=== PATIENT | male | born 1955 | race Caucasian/White ===

== ENCOUNTER 2017-10-14 11:55 | Inpatient (IN) | payer OTHER ==
[~2017-10-14] VITALS: Ht 188 cm; Wt 122.0 kg
[~2017-10-14 11:55] MED LIST: ANTIBIOTIC PO; BYSTOLIC10 MG PO; ULTRAM 50MG50 MG PO
[2017-10-14 12:00] VITALS: BP 129/77
[2017-10-14 12:52] VITALS: BP 129/77
[2017-10-14] MEDS ORDERED: CEFTRIAXONE SOD 1 GM in WATER STERILE 10ML VIAL 10 ML IV SCH (13:15)
[2017-10-14] MEDS: METRONIDAZOLE 500MG/NS 100ML 100 ML IV SCH ×2 (14:00→22:00)
[2017-10-14] MEDS: HYDROMORPHONE 1MG/1ML INJ IV PRN ×2 (14:17→20:47)
[2017-10-14] MEDS: SODIUM CHLORIDE 0.9% 1000ML 1,000 ML IV SCH ×2 (14:18→23:00)
[2017-10-14] MEDS: PANTOPRAZOLE 40 MG 10ML VIAL IV SCH (17:55)
[2017-10-14] MEDS ORDERED: LIDOCAINE HCL 2% LOCAL INJ 5 ML SDV VIAL INJ ONE (18:36)
[2017-10-14] MEDS ORDERED: PROPOFOL IV EMULSION 10 MG/ML 20 ML VIAL ONE (18:36)
[2017-10-14] MEDS ORDERED: ROCURONIUM BROMIDE 10 MG/ML 5ML VIAL ONE (18:36)
[2017-10-14] MEDS ORDERED: HYDRALAZINE HCL 20 MG/ML VIAL ONE (18:36)
[2017-10-14] MEDS ORDERED: ONDANSETRON HCL INJ 2 MG/ML VIAL ONE (18:36)
[2017-10-14] MEDS ORDERED: SEVOFLURANE INHAL SOLN 250 ML PEN BTL ONE (18:36)
[2017-10-14] MEDS ORDERED: CEFTRIAXONE SOD 1 GM VIAL ONE (18:36)
[2017-10-14] MEDS ORDERED: GLYCOPYRROLATE INJ 1MG/ 5 ML SYR ONE (18:36)
[2017-10-14] MEDS ORDERED: DEXAMETHASONE SOD PHOS INJ 4 MG/ML VIAL ONE (18:36)
[2017-10-14] MEDS ORDERED: NEOSTIGMINE 5 MG/5ML SYR ONE (18:36)
[2017-10-14 20:00] VITALS: BP 124/60
[2017-10-14] MEDS ORDERED: ACETAMINOPHEN 325 MG TAB PO PRN (20:00)
[2017-10-15] VITALS: BP 102/58
[2017-10-15 04:00] VITALS: BP 122/55
[2017-10-15] MEDS: METRONIDAZOLE 500MG/NS 100ML 100 ML IV SCH ×3 (05:38→22:39)
--- NOTE | 2017-10-15 07:26 | Diagnostic Imaging Report ---
Exam: Abdominal series upright and supine Clinical History: Abdominal pain Comparison: None. DISCUSSION: Nonobstructive bowel gas pattern. Scattered areas of small and large bowel gas. Moderate retained stool throughout the colon. No free air. Lungs clear. IMPRESSION: 1. Nonobstructive bowel gas pattern. Signed by: Dr. Gerard Lara M.D. on 10/15/2017 7:23 AM
[2017-10-15 07:34] LABS: BASOPHILS # (AUTO) 0.1 (0.0-0.1); BASOPHILS % 0.3 % (0.0-1.0); EOSINOPHILS % 0.1 % (0.0-6.0); HEMATOCRIT 38.2 % (38.2-49.6); HEMOGLOBIN 12.1 g/dL (14.0-18.0); LYMPHOCYTES # (AUTO) 1.6 (1.0-3.2); LYMPHOCYTES % 9.3 % (18.0-39.1); MEAN CORPUSCULAR HEMOGLOBIN 25.4 pg (28-32); MEAN CORPUSCULAR HGB CONC 31.7 g/dL (31-35); MEAN CORPUSCULAR VOLUME 80.3 fL (81-99); MONOCYTES # (AUTO) 2.2 (0.2-0.8); MONOCYTES % 12.4 % (4.4-11.3); NEUTROPHILS # (AUTO) 13.5 (2.1-6.9); NEUTROPHILS % 77.3 % (38.7-80.0); PLATELET COUNT 251 x10e3/uL (140-360); RED BLOOD COUNT 4.76 x10e6/uL (4.3-5.7); RED CELL DISTRIBUTION WIDTH 15.3 % (11.7-14.4)
[2017-10-15 07:58] LABS: ALANINE AMINOTRANSFERASE 161 IU/L (0-55); ALBUMIN 2.8 g/dL (3.5-5.0); ALBUMIN/GLOBULIN RATIO 0.9 (0.8-2.0); ALKALINE PHOSPHATASE 143 IU/L (40-150); ANION GAP 8.8 mmol/L (8-16); BLOOD UREA NITROGEN 14 mg/dL (7-26); BUN/CREATININE RATIO 16 (6-25); CALCIUM 8.4 mg/dL (8.4-10.2); CARBON DIOXIDE 28 mmol/L (22-29); CHLORIDE 103 mmol/L (98-107); CREATININE, SERUM 0.88 mg/dL (0.72-1.25); EST GLOMERULAR FILTRATION RATE > 60 ML/MIN (60-); GLUCOSE 95 mg/dL (74-118); POTASSIUM 3.8 mmol/L (3.5-5.1); SODIUM 136 mmol/L (136-145)
[2017-10-15] MEDS ORDERED: ATENOLOL50 MG PO (09:05)
[2017-10-15] MEDS ORDERED: OMEPRAZOLE40 MG PO (09:07)
[2017-10-15 09:08] VITALS: BP 98/58
[2017-10-15] MEDS ORDERED: CEFTRIAXONE SOD 2 GM VIAL ONE (09:49)
[2017-10-15] MEDS: SODIUM CHLORIDE 0.9% 1000ML 1,000 ML IV SCH ×2 (10:12→19:00)
[2017-10-15] MEDS: CEFTRIAXONE SOD 2 GM in WATER STERILE 10ML VIAL 20 ML IV SCH (11:11)
[2017-10-15 12:14] VITALS: BP 108/58
[2017-10-15] MEDS ORDERED: GADOBUTROL 10 MMOL/10 ML VIAL IV ONE (12:48)
[2017-10-15] MEDS: PANTOPRAZOLE 40 MG 10ML VIAL IV SCH (17:42)
[2017-10-15 18:22] VITALS: BP 118/58
--- NOTE | 2017-10-15 19:38 | Diagnostic Imaging Report ---
EXAM: MRI [facility]CP [facility] DATE: 10/15/2017 9:08 AM Time stamp on exam: 1305 hours INDICATION: Jaundice and abdominal pain, cholecystitis COMPARISON: None TECHNIQUE: MRCP and routine abdominal protocol performed using1.5 Keli with and without the administration of 10 cc gadavist. FINDINGS: Small layering gallstones in the body and neck. No gallbladder wall thickening. Mild pericholecystic inflammation. The common bile duct is normal in caliber measuring 6mm. There are no filling defects or strictures. No intrahepatic biliary dilation. Within the limitations of the exam, the liver, spleen, pancreas and adrenal glands are unremarkable. Simple cortical cyst measuring 1 cm posterior aspect of the left kidney superior pole. No upper abdominal lymphadenopathy. The soft tissues and bones are unremarkable. IMPRESSION: There are small layering gallstones in the gallbladder body and neck. No wall thickening, however there is a small amount of inflammation at the inferior aspect of the gallbladder. If clinical findings are equivocal for early cholecystitis, consider nuclear medicine biliary scan. The common bile duct is within normal size limits. No choledocholithiasis. Signed by: Dr. Magui Stone M.D. on 10/15/2017 7:35 PM
[2017-10-15 20:00] VITALS: BP 117/58
[2017-10-15] MEDS: HYDROMORPHONE 1MG/1ML INJ IV PRN (22:47)
[2017-10-16] VITALS: BP 100/56
[2017-10-16] MEDS: SODIUM CHLORIDE 0.9% 1000ML 1,000 ML IV SCH ×2 (03:51→16:15)
[2017-10-16 04:00] VITALS: BP 123/64
[2017-10-16] MEDS: METRONIDAZOLE 500MG/NS 100ML 100 ML IV SCH ×3 (05:53→21:17)
[2017-10-16 07:19] LABS: BASOPHILS # (AUTO) 0.1 (0.0-0.1); BASOPHILS % 0.7 % (0.0-1.0); EOSINOPHILS # (AUTO) 0.4 (0.0-0.4); HEMATOCRIT 36.7 % (38.2-49.6); HEMOGLOBIN 11.6 g/dL (14.0-18.0); LYMPHOCYTES # (AUTO) 1.2 (1.0-3.2); LYMPHOCYTES % 12.7 % (18.0-39.1); MEAN CORPUSCULAR HEMOGLOBIN 25.1 pg (28-32); MEAN CORPUSCULAR HGB CONC 31.6 g/dL (31-35); MEAN CORPUSCULAR VOLUME 79.4 fL (81-99); MONOCYTES # (AUTO) 1.6 (0.2-0.8); MONOCYTES % 16.7 % (4.4-11.3); NEUTROPHILS # (AUTO) 6.4 (2.1-6.9); NEUTROPHILS % 65.4 % (38.7-80.0); PLATELET COUNT 227 x10e3/uL (140-360); RED BLOOD COUNT 4.62 x10e6/uL (4.3-5.7); RED CELL DISTRIBUTION WIDTH 15.4 % (11.7-14.4)
[2017-10-16 07:57] VITALS: BP 125/63
[2017-10-16 08:13] LABS: ALANINE AMINOTRANSFERASE 104 IU/L (0-55); ALBUMIN 2.6 g/dL (3.5-5.0); ALBUMIN/GLOBULIN RATIO 0.9 (0.8-2.0); ALKALINE PHOSPHATASE 131 IU/L (40-150); ANION GAP 8.5 mmol/L (8-16); BLOOD UREA NITROGEN 14 mg/dL (7-26); BUN/CREATININE RATIO 15 (6-25); CALCIUM 8.7 mg/dL (8.4-10.2); CARBON DIOXIDE 28 mmol/L (22-29); CHLORIDE 105 mmol/L (98-107); CREATININE, SERUM 0.91 mg/dL (0.72-1.25); EST GLOMERULAR FILTRATION RATE > 60 ML/MIN (60-); GLUCOSE 95 mg/dL (74-118); POTASSIUM 4.5 mmol/L (3.5-5.1); SODIUM 137 mmol/L (136-145)
[2017-10-16 08:57] LABS: EOSINOPHILS % (MANUAL) 6 % (0-7); LYMPHOCYTES % (MANUAL) 8 % (19-48); MONOCYTES % (MANUAL) 9 % (3.4-9.0); NEUTROPHILS % (MANUAL) 74 % (40-74)
[2017-10-16 08:58] LABS: ANISOCYTOSIS SLIGHT; PLATELET ESTIMATE ADEQUATE; PLATELET MORPHOLOGY COMMENT FEW LARGE; RBC MORPHOLOGY COMMENT NORMAL
[2017-10-16] MEDS ORDERED: CEFTRIAXONE SOD 2 GM VIAL ONE (09:24)
[2017-10-16] MEDS: CEFTRIAXONE SOD 2 GM in WATER STERILE 10ML VIAL 20 ML IV SCH (09:39)
[2017-10-16 12:12] VITALS: BP 139/74
[2017-10-16 16:00] VITALS: BP 144/77
[2017-10-16] MEDS: PANTOPRAZOLE 40 MG 10ML VIAL IV SCH (16:15)
[2017-10-16 20:00] VITALS: BP 134/67
[2017-10-16] MEDS: HYDROMORPHONE 1MG/1ML INJ IV PRN (21:17)
[2017-10-16] MEDS: ONDANSETRON HCL INJ 2 MG/ML VIAL IV PRN (21:17)
[2017-10-17] VITALS: BP 122/65
[2017-10-17 02:14] LABS: BILIRUBIN,DIRECT 2.9 mg/dL (0.0-5.0)
[2017-10-17 04:00] VITALS: BP 119/69
[2017-10-17] MEDS: SODIUM CHLORIDE 0.9% 1000ML 1,000 ML IV SCH ×3 (04:00→21:42)
[2017-10-17] MEDS: METRONIDAZOLE 500MG/NS 100ML 100 ML IV SCH ×3 (05:52→21:42)
[2017-10-17 07:15] LABS: BASOPHILS # (AUTO) 0.1 (0.0-0.1); BASOPHILS % 0.8 % (0.0-1.0); EOSINOPHILS # (AUTO) 0.4 (0.0-0.4); EOSINOPHILS % 5.1 % (0.0-6.0); HEMATOCRIT 37.6 % (38.2-49.6); HEMOGLOBIN 11.8 g/dL (14.0-18.0); LYMPHOCYTES # (AUTO) 1.5 (1.0-3.2); LYMPHOCYTES % 17.4 % (18.0-39.1); MEAN CORPUSCULAR HEMOGLOBIN 25.2 pg (28-32); MEAN CORPUSCULAR HGB CONC 31.4 g/dL (31-35); MEAN CORPUSCULAR VOLUME 80.3 fL (81-99); MONOCYTES # (AUTO) 1.4 (0.2-0.8); MONOCYTES % 16.5 % (4.4-11.3); NEUTROPHILS % 59.6 % (38.7-80.0); PLATELET COUNT 230 x10e3/uL (140-360); RED BLOOD COUNT 4.68 x10e6/uL (4.3-5.7); RED CELL DISTRIBUTION WIDTH 15.7 % (11.7-14.4)
[2017-10-17 07:46] LABS: % IRON SATURATION 14 % (15-50); ALANINE AMINOTRANSFERASE 77 IU/L (0-55); ALBUMIN 2.6 g/dL (3.5-5.0); ALBUMIN/GLOBULIN RATIO 0.9 (0.8-2.0); ALKALINE PHOSPHATASE 124 IU/L (40-150); ANION GAP 9.8 mmol/L (8-16); BLOOD UREA NITROGEN 8 mg/dL (7-26); BUN/CREATININE RATIO 10 (6-25); CALCIUM 8.4 mg/dL (8.4-10.2); CARBON DIOXIDE 28 mmol/L (22-29); CHLORIDE 106 mmol/L (98-107); CREATININE, SERUM 0.84 mg/dL (0.72-1.25); EST GLOMERULAR FILTRATION RATE > 60 ML/MIN (60-); GLUCOSE 98 mg/dL (74-118); IRON 44 ug/dL (65-175); POTASSIUM 3.8 mmol/L (3.5-5.1); SODIUM 140 mmol/L (136-145); TOTAL IRON BINDING CAPACITY 325 ug/dL (261-478); TRANSFERRIN 232 mg/dL (174-364)
[2017-10-17 08:00] VITALS: BP 142/78
[2017-10-17 08:05] LABS: FERRITIN 53.91 ng/mL (21.81-274.66)
[2017-10-17] MEDS ORDERED: BUPIVACAINE 0.25%/EPI 30ML SDV INJ ONE (08:57)
[2017-10-17] MEDS ORDERED: IOPAMIDOL 610MG/1ML 300 MG/ML VIAL IV ONE (08:58)
[2017-10-17] MEDS ORDERED: ACETAMINOPHEN 1000 MG/100 ML IV PRN (10:30)
[2017-10-17] MEDS ORDERED: MEPERIDINE HCL INJ 50 MG/ML INJ ONE (10:47)
[2017-10-17] MEDS: CEFTRIAXONE SOD 2 GM in WATER STERILE 10ML VIAL 20 ML IV SCH (11:25)
[2017-10-17 12:01] VITALS: BP 131/65
[2017-10-17 15:45] VITALS: BP 154/72
[2017-10-17] MEDS: PANTOPRAZOLE 40 MG 10ML VIAL IV SCH (16:51)
[2017-10-17] MEDS ORDERED: FENTANYL CITRATE/PF 100MCG/2 ML INJ ONE (18:27)
[2017-10-17] MEDS ORDERED: MIDAZOLAM HCL 2 MG/2 ML VIAL ONE (18:27)
[2017-10-17 20:00] VITALS: BP 140/72
[2017-10-17] MEDS: ONDANSETRON HCL INJ 2 MG/ML VIAL IV PRN (20:13)
[2017-10-17] MEDS: HYDROMORPHONE 1MG/1ML INJ IV PRN (20:13)
[2017-10-17] MEDS ORDERED: CYANOCOBALAMIN INJ 1,000 MCG/ML VIAL IM ONE (22:00)
[2017-10-18] VITALS: BP 106/58
[2017-10-18 04:00] VITALS: BP 123/62
[2017-10-18] MEDS: METRONIDAZOLE 500MG/NS 100ML 100 ML IV SCH ×2 (05:49→14:00)
[2017-10-18 07:19] LABS: BASOPHILS # (AUTO) 0.1 (0.0-0.1); BASOPHILS % 0.4 % (0.0-1.0); EOSINOPHILS % 0.3 % (0.0-6.0); HEMATOCRIT 35.5 % (38.2-49.6); HEMOGLOBIN 11.2 g/dL (14.0-18.0); LYMPHOCYTES # (AUTO) 1.7 (1.0-3.2); LYMPHOCYTES % 14.2 % (18.0-39.1); MEAN CORPUSCULAR HEMOGLOBIN 24.8 pg (28-32); MEAN CORPUSCULAR HGB CONC 31.5 g/dL (31-35); MEAN CORPUSCULAR VOLUME 78.5 fL (81-99); MONOCYTES # (AUTO) 1.4 (0.2-0.8); MONOCYTES % 11.6 % (4.4-11.3); NEUTROPHILS # (AUTO) 8.7 (2.1-6.9); PLATELET COUNT 252 x10e3/uL (140-360); RED BLOOD COUNT 4.52 x10e6/uL (4.3-5.7); RED CELL DISTRIBUTION WIDTH 15.9 % (11.7-14.4)
[2017-10-18 07:43] LABS: ALANINE AMINOTRANSFERASE 85 IU/L (0-55); ALBUMIN 2.4 g/dL (3.5-5.0); ALBUMIN/GLOBULIN RATIO 0.9 (0.8-2.0); ALKALINE PHOSPHATASE 148 IU/L (40-150); AMYLASE 202 U/L (25-125); ANION GAP 10.1 mmol/L (8-16); BLOOD UREA NITROGEN 8 mg/dL (7-26); BUN/CREATININE RATIO 10 (6-25); CALCIUM 8.8 mg/dL (8.4-10.2); CARBON DIOXIDE 26 mmol/L (22-29); CHLORIDE 108 mmol/L (98-107); CREATININE, SERUM 0.82 mg/dL (0.72-1.25); EST GLOMERULAR FILTRATION RATE > 60 ML/MIN (60-); GLUCOSE 106 mg/dL (74-118); POTASSIUM 4.1 mmol/L (3.5-5.1); SODIUM 140 mmol/L (136-145)
--- NOTE | 2017-10-18 07:57 | Diagnostic Imaging Report ---
PROCEDURE: INTRAOPERATIVE CHOLANGIOGRAM COMPARISON: None INDICATIONS: Not provided. TECHNIQUE: Intraoperative cholangiogram was performed by Dr. Lucas Randle. A total of 9 abdominal spot radiographs from the procedure were made available for evaluation. FINDINGS:Cannulas and intraoperative forceps from a laparoscopic cholecystectomy are present. There has been cannulation of the cystic duct with opacification of the biliary system noted. No intraluminal filling defects are seen. Caliber of the intrahepatic and extrahepatic biliary ducts appears normal. There is no spill of contrast into the duodenum. A minimal amount of contrast extravasation is present. A surgical clip has been placed. Fluoroscopy time: 49 seconds Total dose: 43.55 mGy IMPRESSION: Normal appearing biliary ducts without spill into the duodenum. Winston Loja D.O. Dictated by: Winston Loja D.O. on 10/18/2017 at 8:04 Electronically approved by: Winston Loja D.O. on 10/18/2017 at 8:04
[2017-10-18 08:11] VITALS: BP 139/73
[2017-10-18] MEDS ORDERED: CYANOCOBALAMIN INJ 1,000 MCG/ML VIAL IM SCH ×2 (09:00→20:00)
[2017-10-18] MEDS: SODIUM CHLORIDE 0.9% 1000ML 1,000 ML IV SCH ×2 (09:57→17:00)
[2017-10-18] MEDS: CEFTRIAXONE SOD 2 GM in WATER STERILE 10ML VIAL 20 ML IV SCH (11:17)
[2017-10-18 12:00] VITALS: BP 139/72
[2017-10-18] MEDS ORDERED: IOPAMIDOL 610MG/1ML 300 MG/ML VIAL IV ONE (14:29)
--- NOTE | 2017-10-18 16:11 | Operative Report ---
DATE OF PROCEDURE: October 18, 2017 REFERRING PHYSICIAN: Dr. Jamil Wesley. PROCEDURE PERFORMED: Endoscopic retrograde cholangiopancreatography. INDICATIONS FOR PROCEDURE: Choledocholithiasis on intraoperative cholangiogram. Patient is status post laparoscopic cholecystectomy. MEDICATION: Patient was done under MAC. Please see anesthesiologist's note. PROCEDURE: With the patient in the prone position, the flexible fiberoptic side-viewing scope was inserted into the esophagus and advanced into the distal stomach. The scope could not be advanced into the duodenum secondary to excessive looping within the stomach ? a J-shaped stomach. The patient was then placed on a side, and then we were able with ease to advance the scope to the 2nd portion of the duodenum. A diverticulum was noted in the proximal 2nd portion, and despite extensive inspection of the periampullary area as well as proximal and distal to the diverticulum, the ampullar orifice could not be delineated with certainty. The scope was subsequently withdrawn. Patient tolerated the procedure well. IMPRESSION: 1. 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 2. Ampulla could not be identified with certainty. PLAN: Will discuss with attending. Job#: [id number] EV cc:JAMIL WESLEY MD
[2017-10-18 16:34] VITALS: BP 139/72
[2017-10-18] MEDS: PANTOPRAZOLE 40 MG 10ML VIAL IV SCH (16:50)
[2017-10-18] MEDS ORDERED: PROPOFOL IV EMULSION 10 MG/ML 50 ML VIAL ONE (18:07)
[2017-10-18] MEDS ORDERED: LIDOCAINE HCL 2% LOCAL INJ 5 ML SDV VIAL INJ ONE (18:07)
[2017-10-18] MEDS ORDERED: GLUCAGON FOR INJ 1 MG VIAL ONE (18:07)
[2017-10-18] MEDS ORDERED: MIDAZOLAM HCL 2 MG/2 ML VIAL ONE (18:31)
[2017-10-18] MEDS ORDERED: FENTANYL CITRATE/PF 100MCG/2 ML INJ ONE (18:31)
--- NOTE | 2017-12-18 13:38 | Operative Report ---
DATE OF PROCEDURE: October 17, 2017 PREOPERATIVE DIAGNOSES: Cholecystitis and cholelithiasis, rule out common bile duct stone. POSTOPERATIVE DIAGNOSES: Cholecystitis, cholelithiasis, and choledocholithiasis. OPERATION PERFORMED: Laparoscopic cholecystectomy with intraoperative cholangiograms. ANESTHESIA: General. COMPLICATIONS: None. ESTIMATED BLOOD LOSS: Minimal. DESCRIPTION OF PROCEDURE: With the patient lying in bed in the supine position under good general endotracheal anesthesia, the abdomen was prepped with Betadine solution and draped in the usual manner. Veress needle was introduced into the umbilicus and pneumoperitoneum was established without any difficulty. An 11 mm trocar was placed into the umbilicus and a 10 mm video laparoscope was placed into the intra-abdominal cavity. Under direct vision, three 5 mm trocars were placed in the right subcostal region. Video laparoscopy at this point revealed no abnormalities other than some adhesions to the gallbladder. The adhesions to the gallbladder were then slowly and carefully taken down and the peritoneum overlying the neck of the gallbladder was then opened and the cystic duct was identified. The cystic duct was followed to its junction with the common duct. The cystic duct was then circumferentially dissected and a clip was placed at the neck of the gallbladder. Cholangiocath was then introduced into the cystic duct and under fluoroscopy, half-strength dye was placed into the biliary tree and this showed the fact that there was what appeared to be a small stone in the distal common bile duct. The cholangiocath was then removed. The cystic duct was then doubly clipped and divided. Cystic artery was then doubly clipped and divided. The gallbladder was then slowly and carefully taken off of the liver bed using the cautery scissors and perfect hemostasis was ascertained. The gallbladder was grasped through the umbilical port and removed without any difficulty. Video laparoscopy was then again carried out. The liver bed was found to perfectly dry. All of the excess fluid was aspirated. The pneumoperitoneum was evacuated and all the trocars were removed under direct vision. The midline fascia at the umbilicus was then closed with a [id number] of 0 Vicryl. All layers were infiltrated on the way out with solution of 0.25% Marcaine. Subcutaneous tissue was approximated with 3-0 Vicryl and the skin was closed with subcuticular 5-0 Vicryl. Benzoin, Steri-Strips, and Band-Aids were applied. The sponge, lap, and needle count was correct. The patient tolerated the procedure well and returned to the recovery room in stable condition. Job#: [id number] SAK
--- NOTE | 2017-12-18 14:27 | Discharge Summary ---
ADMITTING DIAGNOSIS: Cholecystitis and cholelithiasis, rule out common bile duct stones. DISCHARGE DIAGNOSIS: Cholecystitis, cholelithiasis and choledocholithiasis. OPERATION PERFORMED: Laparoscopic cholecystectomy and endoscopic retrograde cholangiopancreatography. COMPLICATIONS: None. This 62-year-old male was admitted to the hospital after presenting with an acute onset of severe crampy mid-abdominal pain associated with nausea and vomiting. He presented to the emergency room where he underwent an ultrasound and was found to have gallstones. Then he was transferred here to the hospital. Physical examination at time of admission showed a male lying in bed in moderate distress complaining of abdominal pain. He was afebrile. His vital signs were stable. Laboratory data showed him to have some elevated white blood cell count and elevated bilirubin. Patient was placed on IV antibiotics and made n.p.o. Consultation was also obtained with the GI service, who kindly managed the patient with us. Patient underwent an uneventful laparoscopic cholecystectomy with cholangiogram. He also underwent an ERCP with stone extraction. Postoperatively, the patient did well. Finally on 10/18/2017, with the patient being afebrile, his vital signs being stable, his wounds healing nicely, eating a regular diet, he was discharged to go home to be followed at the office at a later date. FRANSISCO HAILE MD Job#: [id number]
== END 2017-10-18 20:46 | disposition home or self-care (01) | DRG 413 ==
LOC: MED/SURG 11:55
PROVIDERS: ADMIT Surgery; ATTEND Surgery
PROC: 0FT44ZZ Resection of Gallbladder, Percutaneous Endoscopic Approach (ICD-10-PCS; 2017-10-17)
PROC: BF031ZZ Plain Radiography of Gallbladder and Bile Ducts using Low Osmolar Contrast (ICD-10-PCS; 2017-10-17)
PROC: 0FJB8ZZ Inspection of Hepatobiliary Duct, Via Natural or Artificial Opening Endoscopic (ICD-10-PCS; principal; 2017-10-18 13:30)
DX: K80.40 Calculus of bile duct with cholecystitis, unspecified, without obstruction (principal); K76.0 Fatty (change of) liver, not elsewhere classified; I10 Essential (primary) hypertension; K21.9 Gastro-esophageal reflux disease without esophagitis; E66.9 Obesity, unspecified; D50.9 Iron deficiency anemia, unspecified; D51.3 Other dietary vitamin B12 deficiency anemia
CPT/HCPCS: 36415; 74022; 74183; 74300; 80053; 82150; 82248; 82270; 82607; 82728; 82746; 83540; 84155; 84466; 85025; 85045; 88304; A9585; C1766; J0360; J0696; J1100; J1170; J1610; J2001; J2175; J2250; J2405; J3420; J7030